=== PATIENT | male | born 1970 | race Caucasian/White ===

== ENCOUNTER → 2021-02-03 10:07 | Outpatient (CLI) | payer OTHER, SELFPAY ==
--- NOTE | ~2021-02-03 | US_ITS ---
EXAMINATION: US abdomen complete DATE: 02/03/2021 10:56 INDICATION: Epigastric pain TECHNIQUE: Multiple grayscale and Doppler ultrasound images of the abdomen were obtained. COMPARISON: None available FINDINGS: The head and body of the pancreas are normal. The pancreatic tail is obscured by bowel gas. The liver demonstrates increased echogenicity, heterogenous echotexture, and decreased through trans mission. There appears to be mild nodularity of the liver surface. Normal hepatopetal flow in the andrew n portal vein. The gallbladder is contracted and demonstrates a mildly thickened wall, possibly due t o liver disease. The normal common bile duct measures 3 mm. There was no sonographic Lopez sign. The visualized portions of the aorta and inferior vena cava are normal. The right kidney measures 11.4 x 5.3 x 6.4 cm. There is a 9 mm nonobstructing stone of the kidney. A cyst of the right kidney measures up to 3 cm. The left kidney measures 12.8 x 5.6 x 5.9 cm. The kidne ys demonstrate normal parenchymal echogenicity. There is no hydronephrosis. The enlarged spleen measu res 15.3 cm. IMPRESSION: 1. Sonographic findings suggestive of cirrhosis. 2. Splenomegaly. Reviewed, dictated and finalized at location B.
--- NOTE | ~2021-02-03 | US_ITS ---
EXAMINATION: US soft tissue abdomen INDICATION: Palpable lump in the epigastric region of the abdomen TECHNIQUE: Targeted high-resolution ultrasound is performed in the area of clinical concern. COMPARISON: None available FINDINGS: No suspicious sonographically detected abnormality is identified in the epigastric region t o correspond with the area of palpable concern. IMPRESSION: 1. No sonographic correlate for the patient's symptoms. Reviewed, dictated and finalized at location B.
== END ==
PROVIDERS: PCP Internal Medicine; Visit Provider Physician Assistant Medical
DX: R19.06 Epigastric swelling, mass or lump (principal); R16.1 Splenomegaly, not elsewhere classified
CPT/HCPCS: 76700; 76705

== ENCOUNTER → 2021-09-16 09:32 | Outpatient (CLI) | payer OTHER, SELFPAY ==
--- NOTE | ~2021-09-16 | US_ITS ---
EXAMINATION: US abdomen limited DATE: 09/16/2021 10:28 INDICATION: Cirrhosis. TECHNIQUE: Multiple grayscale and Doppler ultrasound images of the abdomen were obtained. COMPARISON: Ultrasound 02/03/2021 FINDINGS: The visualized portions of the head, body, and tail of the pancreas are normal. The liver d emonstrates coarsened echotexture and surface nodularity, consistent with cirrhosis. There are normal flow in main portal vein. The gallbladder is decompressed. No gallstones or sonographic Lopez sign. The common duct is normal and measures 6 mm. IMPRESSION: 1. Cirrhosis of the liver. Reviewed, dictated and finalized at location B. IMPRESSION: 1. Cirrhosis of the liver.
== END ==
PROVIDERS: PCP Internal Medicine; Visit Provider Internal Medicine Gastroenterology
DX: K70.30 Alcoholic cirrhosis of liver without ascites (principal)
CPT/HCPCS: 76705

== ENCOUNTER → 2022-05-04 10:04 | Outpatient (CLI) | payer OTHER, SELFPAY ==
--- NOTE | ~2022-05-04 | US_ITS ---
EXAMINATION: US right upper quadrant DATE: 05/04/2022 10:30 INDICATION: Cirrhosis of the liver TECHNIQUE: Multiple grayscale and Doppler ultrasound images of the abdomen were obtained. COMPARISON: 09/16/2021 FINDINGS: Bowel gas obscures visualization of the pancreas. The visualized portions of the pancreas a re unremarkable. The liver demonstrates increased echogenicity and coarsened echotexture. There is no dularity of the liver surface. Normal hepatopetal flow in the main portal vein. The gallbladder is no rmal with no abnormal wall thickening, pericholecystic fluid or stones. The normal common bile duct m easures 5 mm. There was no sonographic Lopez sign. IMPRESSION: 1. Cirrhosis of the liver. Reviewed, dictated and finalized at location B. 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 Cirrhosis of the liver.
== END ==
PROVIDERS: PCP Internal Medicine Gastroenterology; Visit Provider Internal Medicine Gastroenterology
DX: K70.30 Alcoholic cirrhosis of liver without ascites (principal)
CPT/HCPCS: 76705

== ENCOUNTER 2022-11-25 17:09 | Outpatient (CLI) | payer OTHER, SELFPAY ==
--- NOTE | ~2022-11-25 | US_ITS ---
EXAMINATION: US venous doppler LE RT DATE: 11/25/2022 17:40 INDICATION: Right lower limb pain TECHNIQUE: Grayscale ultrasound images without and with compression and Doppler ultrasound images of the right lower extremity veins were obtained. COMPARISON: None. FINDINGS: The visualized portions of right common femoral vein, profunda (deep) femoral vein, femoral vein, pop liteal vein, peroneal trunk, posterior tibial veins, peroneal veins, gastrocnemius vein and greater s aphenous vein outflow are patent. IMPRESSION: 1. No deep venous thrombosis in the right lower limb. Reviewed, dictated and finalized at location A.
== END 2022-11-25 17:10 | disposition home or self-care (01) ==
LOC: ANHIMG 17:14
PROVIDERS: PCP Physician Assistant Medical; Visit Provider Physician Assistant Medical
DX: M79.89 Other specified soft tissue disorders (principal); M79.604 Pain in right leg
CPT/HCPCS: 93971

== ENCOUNTER 2023-05-12 14:36 | Outpatient (CLI) | payer OTHER, SELFPAY ==
--- NOTE | ~2023-05-12 | CT_ITS ---
EXAMINATION: CT abdomen wo/w con DATE: 05/12/2023 15:18 INDICATION: Alcoholic cirrhosis of liver. TECHNIQUE: Computed tomography (CT) of the abdomen was performed without and with 100 mL Omnipaque 35 0 intravenous contrast. Automated exposure control and iterative reconstruction technique were employ ed. The dose-length product was 2219.08 mGy-cm. COMPARISON: None. FINDINGS: The visualized portions of the lung bases are clear without pneumonia or pleural effusion. The heart size is normal. No pericardial effusion. The liver demonstrates surface nodularity, consist ent with cirrhosis. There is no liver mass. There are is a gallstone in the gallbladder, which is nor mal in size. There is a paraumbilical portacaval shunt. The spleen is normal in size. The pancreas an d adrenal glands are normal. There is a 3.8 cm cyst in right kidney. Left kidney is normal. There are no dilated loops of bowel. There are no pathologically enlarged lymph nodes. There is no free intrap eritoneal fluid. There is mild thoracolumbar spondylosis. IMPRESSION: 1. Cirrhosis of the liver with portal venous hypertension. Reviewed, dictated and finalized at location E. 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
[2023-05-12 15:05] LABS: Estimated Glomerular Filt Rate > 60
== END 2023-05-12 14:37 ==
PROVIDERS: PCP Physician Assistant Medical; Visit Provider Internal Medicine Gastroenterology
DX: K70.30 Alcoholic cirrhosis of liver without ascites (principal); K76.6 Portal hypertension
CPT/HCPCS: 74170; Q9967

== ENCOUNTER 2023-09-03 15:00 | Outpatient (RCR) | payer OTHER, SELFPAY ==
--- NOTE | 2023-06-11 19:02 | PTOPEVAL1 ---
Assessment and note entered by Doris Nunez, PT Evaluation Information Assessment Status Evaluation Diagnosis low back pain, other chronic pain, pain in left foot, anaesthesia of skin, Addn. Therapy Conditions weakness, stiffness of hips, stiffness of ankle (L) Subjective Information Pt reports July 2022 fractured left outer ankle and then later the 4th and 5th metatarsal in Nov 2022. In July didn't go to the Dr. right away. Was in a walking boot for the first and then was in a boot again. Used a knee scooter. Went to Dr. Rosas because the area of the break bottom of foot about 1/3 of foot is still numb or doesn't have full feeling. Every step noticed feeling. Gave a cortisone shot and since then is better, not normal but better. To the point would be willing to try to start walking again. Has always been physically active. Starting about 9 years ago would walk up to 10 miles a day multiple days a week. This was norm for 4 years with some tapering. By 2019 was not walking anymore. Reports in addition to the foot, also has bilat knee pain and back pain. Back Pain At times will have pain all across the back. Is like when lay around a long time then getting up with stiffness. The pain is worried about is on the right side in the dimple all the time varying levels. Standing a long period during a hopkins, states had an old man shuffle . States does this a lot at night but also has difficulty visualizing at night . Has had back pain on and off for at least 4 years, but in the last year has gotten more consistent, more noticeable and more often Reported Pain Level Pain Score 0,4: Self Report Assessment PT Clinical Summary Pt presents today with dx of Achilles tendon shortening, low back pain, other chronic pain, pain in left foot, anesthesia of skin. Prior hx of ankle and foot fractures last year, reports numbness in the ball of the left foot which recent steroid shot helped but did not resolve. Also has back pain has had on and off ~4 years with the last year worsening. Evaluation shows mild decreased ROM of ankl
--- NOTE | 2023-06-11 19:03 | OPREHPOC ---
Outpatient Therapy Plan of Care This is a Multidisciplinary Plan of Care that may contain components documented by all disciplines (PT, OT, and ST.) PT Goal 1 Goal Pt will be independent in HEP Pt will verbalize understanding of diagnosis and prognosis Target Visit 6 PT Problem 2 PT Problem #2 Impaired Range of Motion PT Goal 1 Goal Pt will demo passive ROM left ankle equal to right Target Visit 8 PT Goal 2 Goal Pt will demo bilat hip passive ROM equal Target Visit 8 PT Problem 3 PT Problem #3 Impaired Strength PT Goal 1 Goal Pt will demo strength of 4/5 in gluteus medius to improve core stability Target Visit 8 PT Goal 2 Goal Pt will demo core strength of 4/5 of the TRAM to improve lumbopelvic stability Target Visit 8 PT Problem 4 PT Problem #4 Pain PT Goal 1 Goal Pt will report resolution of pain to return to PLOF Target Visit 8
--- NOTE | 2023-07-16 13:44 | PCPTNOTE ---
Patient called & cancelled scheduled appointment this date due to having a fever.
--- NOTE | 2023-08-18 18:04 | PTOPPROG ---
Assessment and note entered by Doris Nunez, PT Evaluation Information Assessment Status Progress Diagnosis low back pain, other chronic pain, pain in left foot, aneastheisa of skin, Therapy Conditions weakness stiffness of left ankle Subjective Information Pt reports back has been doing well. But states hasn't done anything in the last week more than normal. But also notes has been up and moving at work more. States hadn't noticed but realized he had been coordinating his walking trips likely due to pain. Knees are a big deal , received steroid shots that for four days was great, but isn't lasting as well as was hoping but is way better than it was. Was able to go down steep steps for a meeting and did great with that Foot is still numb in 4-5th dorsum. Was advised a donut to offload nerve and allow decompression States varies. States lately is hit or miss and more often is without pain. Self-perceived improvement: right side is 50% improved, left hand side is sometimes is more aggravated than previously All day today hadn't thought about it at all. In and out of the car is better. Definitely improved. Can function at a much higher rate. Standing is not as miserable but is still not comfortable. Standing hasn't been tested up to an hour because doesn't want to be in pain again. starting to get lillian after 10-15 minutes, starts looking for a wall . Assessment PT Clinical Summary Pt reports overall improvement, has been able to return to walking with minimal discomfort to his back. He does continue to have a wide range of pain that varies between L and R sacroiliac joint. Reports do appear as though the pain is less often in frequency when he does have the increased pain. Pt has made advances in all aspects of treatment but has yet to meet his goals for high level activities with less pain. Thus patient will benefit form continued therapy in order to address deficits and meet patient functional
--- NOTE | 2023-09-10 12:44 | PCPTNOTE ---
This treatment is being continued on visit number [id number]. Please see documentation on both accounts to view progress. Completed interventions, outcomes, and problems have been marked as Inactive to facilitate the copying of the Care plan routine for recurring accounts.
== END 2023-09-09 23:59 | disposition home or self-care (01) ==
LOC: ANHHIPT 15:00
PROVIDERS: PCP Physician Assistant Medical; Visit Provider Physician Assistant Medical
DX: M54.50 Low back pain, unspecified (principal); M79.672 Pain in left foot; M67.02 Short Achilles tendon (acquired), left ankle; R20.0 Anesthesia of skin; G89.29 Other chronic pain
CPT/HCPCS: 97012; 97014; 97110; 97112; 97116; 97140; 97161; 97530; 97750; G0283

== ENCOUNTER 2023-11-30 15:30 | Outpatient (RCR) | payer OTHER, SELFPAY ==
--- NOTE | 2023-09-10 12:44 | PCPTNOTE ---
The treatment documented on this account is a continuation of the treatment documented on visit number [id number] . Please see documentation on both accounts to view progress. The Plan of Care has been transitioned and updated within the new V#. I have addressed and agree with the discipline specific Problems, Interventions, and Goals for the current certification period. Completed interventions, outcomes, and problems have been marked as Inactive to facilitate the copying of the Care plan routine for recurring accounts.
--- NOTE | 2023-10-19 16:49 | OPREHPOC ---
Outpatient Therapy Plan of Care This is a Multidisciplinary Plan of Care that may contain components documented by all disciplines (PT, OT, and ST.) PT Problem 1 PT Problem #1 Knowledge Deficit PT Goal 1 Goal Pt will be independent in HEP Pt will verbalize understanding of diagnosis and prognosis Target Visit 6 Progress Met PT Problem 2 PT Problem #2 Impaired Range of Motion PT Goal 1 Goal Pt will demo passive ROM left ankle equal to right Target Visit 8 Progress Partially Met Comment Improved dorsiflexion left ankle PT Goal 2 Goal Pt will demo bilat hip passive ROM equal Target Visit 8 Progress Met PT Problem 3 PT Problem #3 Impaired Strength PT Goal 1 Goal Pt will demo strength of 5/5 in gluteus medius to improve knee stability Target Visit 6 Progress Met PT Goal 2 Goal Pt will demo strength of 4/5 in hip adduction to improve knee stability Target Visit 6 Progress Met PT Problem 4 PT Problem #4 Pain PT Goal 1 Goal Pt will report greatest pain level at 5/10 or less to improve ADLs and activities Target Visit 3 Progress Not Met PT Goal 2 Goal Pt will report greatest pain level at 3/10 or less to improve ADLs and activities Target Visit 6 PT Problem 5 PT Problem #5 Pain PT Goal 1 Goal Pt will report ability to ambulate for fitness with 3/10 pain or less in back to improve functional activities Target Visit 12
--- NOTE | 2023-10-19 16:49 | PTOPEVAL1 ---
Assessment and note entered by Doris Nunez, PT Evaluation Information Assessment Status Evaluation Diagnosis pain in left and right knee ICD-10 Condition Codes (PT) M25.561,Pain in left knee M25.562 Subjective Information Pt reports has recently started anti- inflammatories for knees, orally. Previously had steroid shots within the last three months Increased discomfort up to 8/10 with sit>stand from lower surfaces like couch at home. With use of UEs eases pressure. Feels like has to get momentum built up to get up without use of UEs Walking will notice knees in the beginning but is fairly pain free during the walk. 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 walking up flights of stairs knees were painful but had significant fatigue for a long time after Reported Pain Level Pain Score 0,0: Self Report Assessment PT Clinical Summary Pt presents with c/o noemi knee pain. He demo's appropriate ROM in unweighted positions, appropriate strength with isolated resistance testing of the quads and hamstrings. However he does demo deficits in strength of lateral LE musculature, flexibility deficits, and abnormal mobility kinematics due to his length/height compared to his environment. Due to kinematic issues related to height and surroundings, increased pressure through the knees during mobility is likely part of the cause of increased discomfort. Pt will benefit from physical therapy to improve functional strength to offload forces on knee joints,educate on activation of additional muscles to offload knee joints, and reduce pain to improve independent function. Plan of Care Interventions Electrical Stimulation,Gait Training,Hot Pack/Cold Pack,Manual Therapy,Neuro Re-education, Therapeutic Activities,Therapeutic Exercise,Self- Care/Home Management,Ultrasound Other Interventions Taping PT Services Indicated Yes Treatment Frequency and 1-2x weekly x 6 visits Duration These treatments will address the objective and functional deficits as defined above. The patient will be advanced safely and appropriately in order for the patient to progress towards his/her prior level of function. Additional exercises will be introduced and as well as a comprehensive home exercise program upon discharge, if needed, ?to ensure carryover of functional gains achieved in the clinic. This treatment plan has been reviewed and agreement upon by the patient.
--- NOTE | 2023-12-01 19:58 | PTOPDC ---
Assessment and note entered by Doris Nunez, PT Evaluation Information Assessment Status Discharge Diagnosis pain in left and right knee ICD-10 Condition Codes (PT) M25.561,Pain in left knee M25.562 Subjective Information Pt reports the best thing he can think of is that he isn't thinking about it regarding the back and knee pain. 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 Reports back will feel little tweaks but will resolve. 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 Wants to put his energy into his last year before retiring. Was able to walk around festival for 3 hours this weekend, no ankle pain, knees did ok, back had a little increased discomfort. Reported Pain Level Pain Score 3,3: Self Report Additional Pain Score Comments Ankle has increased pain after standing and walking a lot Assessment PT Clinical Summary Pt has attended therapy consistently initially for left ankle and low back issues, then progressed away from this plan of care to noemi knee issues. He demo's independence and understanding of HEP to maintain and progres strength and flexibility of all involved body parts. 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 Thus patient is being discharged from [facility] for completion of his program Plan of Care PT Services Indicated No
== END 2023-12-02 08:24 | disposition home or self-care (01) ==
LOC: ANHHIPT 15:30
PROVIDERS: PCP Physician Assistant Medical; Visit Provider Physician Assistant Medical
DX: M54.50 Low back pain, unspecified (principal); M79.672 Pain in left foot; M67.02 Short Achilles tendon (acquired), left ankle; R20.0 Anesthesia of skin; G89.29 Other chronic pain
CPT/HCPCS: 97014; 97110; 97112; 97116; 97140; 97161; 97530; 97750; G0283

== ENCOUNTER 2023-12-20 10:18 | Outpatient (CLI) | payer OTHER, SELFPAY ==
--- NOTE | ~2023-12-20 | US_ITS ---
COMPLETE ABDOMINAL ULTRASOUND Ordering provider: Albert Sanchez, History: . Alcoholic cirrhosis of liver without ascites . Comparison: None. FINDINGS: LIVER: Nodular surface is noted suggestive of cirrhosis.. Fat infiltration. No focal hepatic lesions or perihepatic fluid collections are identified. portal vein flow is normal. GALLBLADDER: Thickening of the wall measures 0.8 cm with cholelithiasis.. A negative sonographic Murp hy's sign was noted. BILIARY DUCTS: No evidence for intra or extrahepatic biliary dilation. Common bile duct measures 5 mm in diameter which is within normal limits. PANCREAS: Normal echotexture and size. SPLEEN: Normal size, echotexture and contour and measures cm in length. KIDNEYS: Right measures 11.4 cm in length . There is no evidence for hydronephrosis, solid renal mass , renal calculi or perinephric fluid collections. Cyst is seen laterally measuring 3.9 x 3.9 x 4.3 cm . UPPER ABDOMINAL AORTA: Normal in caliber. IVC: Patent. FREE FLUID: None. IMPRESSION: Cholelithiasis with thickened wall. No evidence of cholecystitis. Clinical correlation advised. Nodu lar outline of the liver which may indicate cirrhosis with fat infiltration. Right renal cyst. Otherw ise, normal Complete ultrasound of the abdomen. Reviewed, dictated and finalized at location A. IMPRESSION: Cholelithiasis with thickened wall. No evidence of cholecystitis. Clinical cor relation advised. Nodular outline of the liver which may indicate cirrhosis wit h fat infiltration. Right renal cyst. Otherwise, normal Complete ultrasound of the abdomen.
== END 2023-12-20 10:19 | disposition home or self-care (01) ==
LOC: MICIMG 10:19
PROVIDERS: PCP Physician Assistant Medical; Visit Provider Internal Medicine Gastroenterology
DX: K70.30 Alcoholic cirrhosis of liver without ascites (principal); K80.20 Calculus of gallbladder without cholecystitis without obstruction
CPT/HCPCS: 76705

== ENCOUNTER 2024-07-07 14:38 | Outpatient (CLI) | payer OTHER, SELFPAY ==
--- NOTE | ~2024-07-07 | US_ITS ---
EXAM: ABDOMEN ULTRASOUND HISTORY: Alcoholic cirrhosis of liver w/o ascites COMPARISON: 12/20/2023 FINDINGS: LIVER: The liver is unremarkable in echogenicity and size. GALLBLADDER: Multiple stones are identified within the gallbladder, which is otherwise unremarkable. The stones are bulky and mobile. No gallbladder wall thickening or pericholecystic fluid. BILE DUCTS: Common bile duct measures 5.3mm. PANCREAS: Limited evaluation of the pancreas secondary to overlying bowel gas IMPRESSION: Cholelithiasis, without ultrasound evidence of cholecystitis.. Reviewed, dictated and finalized at location A.
== END 2024-07-07 14:39 | disposition home or self-care (01) ==
PROVIDERS: PCP Physician Assistant Medical; Visit Provider Internal Medicine Gastroenterology
DX: K80.20 Calculus of gallbladder without cholecystitis without obstruction (principal); K70.30 Alcoholic cirrhosis of liver without ascites
CPT/HCPCS: 76705

== ENCOUNTER 2024-08-31 09:15 | Outpatient (RCR) | payer OTHER, SELFPAY ==
--- NOTE | 2024-06-12 16:21 | OTOPEVAL1 ---
Assessment and note entered by Tre Nye, OTR/Eddi, CHT OT Evaluation Information 06/12/24 Assessment Status Evaluation ICD-10 Condition Codes (OT) Pain in right wrist M25.531, Pain in left wrist M25.532 Subjective Information Patient reports pain in bilateral wrists and hands that began about a year ago and has become progressively worse. 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 Difficulty with lifting his grandson and especially difficulty with trying to lift a bullock out of the oven with a lateral pinch. He reports his pain fluctuates. He reports this week he was using a small chain saw trimming hedges and pulling branches and his left wrist pain increased to 6/10. Reports increased left wrist pain with pushing himself up from a chair for example, at times the right can be painful with this, but mostly the left. 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 Reported Pain Level Pain Score 0: Self Report Additional Pain Score Comments No pain at rest. With Hui's test: left wrist increased to 3 /10 pain and right wrist to 1/10 pain. Assessment OT Clinical Summary Patient referred to OT with bilateral wrist pain. Signs and symptoms are consistent with de Quervain 's tenosynovitis with a definite positive test on the left. Patient also has reports of fluctuating diffuse hand pain which affects his ability to bend his finger joints, which appears consistent with OA. X-rays confirm OA. Discussed wearing a thumb support and printed out options for him to purchase to support the thumb extensor tendons and it will also work well to support the 1st CMC which the x-ray shows is the most impacted by OA. Trialed paraffin today and this relieved his symptoms. Educated on the use of heat at home. Issued active ROM HEP for improved soft tissue mobility as well as synovial fluid mobility in the joints. Continued skilled OT indicated for use of modalities, HEP progression, and therapeutic exercise to facilitate improved functional hand use for ADLs. Plan of Care Interventions Therapeutic Exercise,Manual Therapy,Therapeutic Activities,Hot Pack/Cold Pack,Ultrasound,Paraffin OT Services Indicated Yes Treatment Frequency and 1x/week for 5 visits Duration These treatments will address the objective and functional deficits as defined above. The patient will be advanced safely and appropriately in order for the patient to progress towards his/her prior level of function. Additional exercises will be introduced and as well as a comprehensive home exercise program upon discharge, if needed, ?to ensure carryover of functional gains achieved in the clinic. This treatment plan has been reviewed and agreement upon by the patient.
--- NOTE | 2024-06-12 16:21 | OPREHPOC ---
Outpatient Therapy Plan of Care This is a Multidisciplinary Plan of Care that may contain components documented by all disciplines (PT, OT, and ST.) OT Problem 1 OT Problem #1 Knowledge Deficit OT Goal 1 Goal / Goal Update Patient to be independent with instructed materials. Target Visit 5 OT Problem 2 OT Problem #2 Pain OT Goal 1 Goal / Goal Update Patient to report less than 3/10 pain at worst in the left thumb. Target Visit 5 OT Goal 2 Goal / Goal Update Patient to report no instances of diffuse hand pain that prohibits his ability to wash his hair. Target Visit 5 OT Problem 3 OT Problem #3 Impaired Strength OT Goal 1 Goal / Goal Update To improve functional wrist and hand strength for ADLs, patient to be able to: - complete bilateral vp digital marketing and pinch strengthening HEP with at least red putty x10 minutes without increased pain - complete bilateral wrist strengthening HEP with at least 2 lbs. 2x10 reps without increased pain Target Visit 5
--- NOTE | 2024-07-17 15:52 | OTOPPROG ---
Assessment and note entered by Tre Nye, LESLEY/Eddi, OCHOAT OT Progress Update 07/17/24 Assessment Status Progress ICD-10 Condition Codes (OT) Pain in right wrist M25.531,Pain in left wrist M25 .532 Subjective Information Patient reports significant progress in the last month with his bilateral wrist pain. He reports no longer having difficulty with washing his hair. He is able to picking supervisor his 22 lb. dog with less pain and not need to compensate. He states he is having an easier time using a lateral pinch to picking supervisor pans out of the oven. At the start of care he was reporting 6/10 wrist pain after doing yard work and this weekend he did yard work 2 days in a row, used chainsaw, mower, etc. and his pain increased to 3/10 at the worst. Assessment OT Clinical Summary Patient referred to OT with bilateral wrist pain. Signs and symptoms are consistent with de Quervain 's tenosynovitis. He has been utilizing a wrist/ thumb immobilizer and strengthening with good results. His pain is decreasing, strength is improving, and bilateral UE/hand use is improving. Continued skilled OT indicated for continued use of modalities, HEP progression, and therapeutic exercise to facilitate improved functional hand use for ADLs. Plan of Care Interventions Therapeutic Exercise,Manual Therapy,Therapeutic Activities,Hot Pack/Cold Pack,Ultrasound,Paraffin OT Services Indicated Yes Treatment Frequency and 1x/week for 3 visits Duration These treatments will address the objective and functional deficits as defined above. The patient will be advanced safely and appropriately in order for the patient to progress towards his/her prior level of function. Additional exercises will be introduced and as well as a comprehensive home exercise program upon discharge, if needed, ?to ensure carryover of functional gains achieved in the clinic. This treatment plan has been reviewed and agreement upon by the patient.
--- NOTE | 2024-07-17 15:52 | OPREHPOC ---
Outpatient Therapy Plan of Care This is a Multidisciplinary Plan of Care that may contain components documented by all disciplines (PT, OT, and ST.) OT Problem 1 OT Problem #1 Knowledge Deficit OT Goal 1 Goal / Goal Update Patient to be independent with instructed materials. ---OT POC UPDATE 07/17/24--- Met Target Visit 8 OT Problem 2 OT Problem #2 Pain OT Goal 1 Goal / Goal Update Patient to report less than 3/10 pain at worst in the left thumb. ---OT POC UPDATE 07/17/24--- Not met, Patient reporting instances of 3/10 pain, continue to 2/10 or less Target Visit 8 OT Goal 2 Goal / Goal Update Patient to report no instances of diffuse hand pain that prohibits his ability to wash his hair. 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 2x10 reps without increased pain ---OT POC UPDATE 07/17/24--- - progressing, continue goal - progressing, continue goal Target Visit 8
--- NOTE | 2024-08-14 16:05 | OTOPPROG ---
Assessment and note entered by Tre Nye, LESLEY/Eddi, OCHOAT OT Progress Update 08/14/24 Assessment Status Progress ICD-10 Condition Codes (OT) Pain in right wrist M25.531,Pain in left wrist M25 .532 Subjective Information Patient reports he is very happy with his progress this last month. He reports no longer experiencing difficulties with ADLs. He reports he did yard work yesterday and his right hand/wrist pain increased to 2/10 at worst. Left hand/wrist have no pain. Assessment OT Clinical Summary Patient referred to OT with bilateral wrist pain. Signs and symptoms are consistent with de Quervain 's tenosynovitis. He has made excellent progress on the left UE, reporting no pain and is no longer wearing his immobilizer on this side. The right thumb/wrist has become the more painful one and he admits to not being as diligent with his immobilizer on this side. Hui's continues to be positive on this side, but overall less pain with the provocative test. At this time patient is going to continue his HEP independently x4 weeks and follow up with therapy for one final visit. Plan of Care Interventions Therapeutic Exercise,Manual Therapy,Therapeutic Activities,Hot Pack/Cold Pack,Ultrasound,Paraffin OT Services Indicated Yes Treatment Frequency and Follow up in 4 weeks. Duration These treatments will address the objective and functional deficits as defined above. The patient will be advanced safely and appropriately in order for the patient to progress towards his/her prior level of function. Additional exercises will be introduced and as well as a comprehensive home exercise program upon discharge, if needed, ?to ensure carryover of functional gains achieved in the clinic. This treatment plan has been reviewed and agreement upon by the patient.
--- NOTE | 2024-08-14 16:05 | OPREHPOC ---
Outpatient Therapy Plan of Care This is a Multidisciplinary Plan of Care that may contain components documented by all disciplines (PT, OT, and ST.) OT Problem 1 OT Problem #1 Knowledge Deficit OT Goal 1 Goal / Goal Update Patient to be independent with instructed materials. ---OT POC UPDATE 07/17/24--- Met ---OT POC UPDATE 08/14/24--- Met Target Visit 9 Progress Met OT Problem 2 OT Problem #2 Pain OT Goal 1 Goal / Goal Update Patient to report less than 3/10 pain at worst in the left thumb. ---OT POC UPDATE 07/17/24--- Not met, Patient reporting instances of 3/10 pain, continue to 2/10 or less ---OT POC UPDATE 08/14/24--- Met Target Visit 9 Progress Met OT Goal 2 Goal / Goal Update Patient to report no instances of diffuse hand pain that prohibits his ability to wash his hair. 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 2x10 reps without increased pain ---OT POC UPDATE 07/17/24--- - progressing, continue goal - progressing, continue goal ---OT POC UPDATE 08/14/24--- - some pain on the right with putty HEP - fluctuates, no pain in left, mild pain with 3 lbs. Target Visit 9
== END 2024-09-10 23:59 | disposition home or self-care (01) ==
LOC: ANHHIOT 09:15
PROVIDERS: PCP Physician Assistant Medical; Visit Provider Physician Assistant Medical
DX: M25.531 Pain in right wrist (principal); M25.532 Pain in left wrist
CPT/HCPCS: 97018; 97110; 97140; 97165; 97530; 97760

== ENCOUNTER 2024-09-12 08:47 | Outpatient (RCR) | payer OTHER, SELFPAY ==
--- NOTE | 2024-09-12 11:52 | OTOPDC ---
Assessment and note entered by Tre Nye, LESLEY/Eddi, AMANDA OT D/C 09/12/24 Assessment Status Discharge Diagnosis Pain in right wrist, Pain in left wrist Subjective Information Patient reports he is happy with his progress in the last month. He reports no longer experiencing pain in the radial wrist, stating, I don't even think about this area anymore. Patient is no longer experiencing pain with yard work, golfing, etc. He reports if he has a flair up of pain, it 's now localized to the palmar surface of the middle fingers on both hands. Assessment OT Clinical Summary Patient referred to OT with bilateral wrist pain. Signs and symptoms are consistent with de Quervain 's tenosynovitis. The radial wrist pain has now resolved and he no longer has positive Hui 's and no longer is wearing immobilizers on his wrists. He does complain of pain in the middle fingers, which appears to be flexor tenosynovitis, but not to the point that his fingers are triggering or getting stuck. Today he has no pain or symptoms but does have infrequent flair ups that are painful. Tests for carpal tunnel syndrome are negative. Reviewed HEP and he demonstrates excellent understanding of all materials. No further skilled OT indicated at this time. OT Services Indicated No
== END 2024-12-11 10:06 | disposition home or self-care (01) ==
LOC: ANHHIOT 08:47
PROVIDERS: PCP Physician Assistant Medical; Visit Provider Physician Assistant Medical
DX: M25.531 Pain in right wrist (principal); M25.532 Pain in left wrist
CPT/HCPCS: 97110

== ENCOUNTER 2025-01-30 08:07 | Outpatient (CLI) | payer OTHER, SELFPAY ==
--- NOTE | ~2025-01-30 | US_ITS ---
ULTRASOUND ABDOMEN LIMITED (RIGHT UPPER QUADRANT) Clinical History: cirrhosis of liver Comparison: Ultrasound 07/07/2024 Technique: Right upper quadrant sonography Findings: Liver: Nodular contour. Normal size. Coarse echotexture. No intrahepatic biliary ductal dilatation. Normal hepatopedal flow main portal vein. Common Duct: Normal caliber. 4 mm. Gallbladder: Stones. No wall thickening. No pericholecystic fluid. Pancreas: Unremarkable. IMPRESSION: 1. Cirrhosis. No discrete hepatic mass. 2. Gallstones. Reviewed, dictated and finalized at location R.
== END 2025-01-30 08:08 | disposition home or self-care (01) ==
LOC: MICIMG 08:09
PROVIDERS: PCP Physician Assistant Medical; Visit Provider Internal Medicine Gastroenterology
DX: K70.30 Alcoholic cirrhosis of liver without ascites (principal); K80.20 Calculus of gallbladder without cholecystitis without obstruction
CPT/HCPCS: 76705